=== PATIENT | female | born 1965 | race African-American/Black ===

== ENCOUNTER 2017-03-25 10:47 | Inpatient (IN) | payer BC, OTHER, SELFPAY ==
[~2017-03-25] VITALS: Ht 162.6 cm; Wt 67.3 kg
[2017-03-25] MEDS ORDERED: ONDANSETRON HCL 4 MG TABLET PO PRN ×2 (11:45)
[2017-03-25] MEDS ORDERED: LOPERAMIDE HCL 2 MG CAPSULE PO PRN (11:45)
[2017-03-25 11:54] VITALS: BP 109/70
[2017-03-25] MEDS ORDERED: ARIP2 PO (13:38)
[2017-03-25] MEDS ORDERED: CETI-260 PO (13:38)
[2017-03-25] MEDS ORDERED: FLUO-191 PO (13:38)
[2017-03-25] MEDS ORDERED: CLON1 PO (13:38)
[2017-03-25] MEDS ORDERED: CLON.1 PO (13:38)
[2017-03-25] MEDS ORDERED: FAMO20 PO (13:38)
[2017-03-25] MEDS ORDERED: ESTRADIOL TD SCH (15:00)
[2017-03-25 16:33] VITALS: BP 113/72
[2017-03-25] MEDS: SIMETHICONE 80 MG CHEWABLE TABLET CHEW SCH (16:37)
[2017-03-25 17:22] VITALS: BP 115/75
[2017-03-25] MEDS: LORazepam 2 MG TABLET PO PRN (17:23)
[2017-03-25] MEDS: OxyCODONE HCL/ACETAMINOPHEN 5-325 MG TABLET PO PRN (17:23)
[2017-03-25 18:23] VITALS: BP 112/70
[2017-03-25] MEDS: ClonazePAM 1 MG TABLET PO SCH (20:11)
[2017-03-25] MEDS: FAMOTIDINE 20 MG TABLET PO SCH ×2 (20:12→22:02)
[2017-03-26 05:53] VITALS: BP 119/72
[2017-03-26 06:42] VITALS: BP 118/76
[2017-03-26] MEDS: OxyCODONE HCL/ACETAMINOPHEN 5-325 MG TABLET PO PRN ×2 (06:46→16:14)
[2017-03-26] MEDS: LORazepam 2 MG TABLET PO PRN ×3 (06:46→20:16)
[2017-03-26 08:26] VITALS: BP 104/68
[2017-03-26] MEDS: SIMETHICONE 80 MG CHEWABLE TABLET CHEW SCH ×2 (08:34→16:05)
[2017-03-26] MEDS: ARIPiprazole 2 MG TABLET PO SCH (08:36)
[2017-03-26] MEDS: FAMOTIDINE 20 MG TABLET PO SCH ×2 (08:36→16:05)
[2017-03-26] MEDS: FLUoxetine HCL 20 MG CAPSULE PO SCH (08:36)
[2017-03-26] MEDS: ClonazePAM 1 MG TABLET PO SCH ×2 (08:37→17:48)
[2017-03-26] MEDS: CloNIDine HCL 0.1 MG TABLET PO SCH (08:37)
[2017-03-26] MEDS: CETIRIZINE HCL 10 MG TABLET PO SCH (08:37)
[2017-03-26 08:48] LABS: BASOPHILS % (AUTO) 0.5 % (0.0-2.0); EOSINOPHILS % (AUTO) 5.2 % (1.0-6.0); HEMATOCRIT 40.3 % (36-46); HEMOGLOBIN 12.8 g/dL (12.0-16.0); LYMPHOCYTES # (AUTO) 2.2 K/uL (1.0-4.8); LYMPHOCYTES % (AUTO) 36.8 % (22.0-44.0); MEAN CORPUSCULAR HEMOGLOBIN 29.2 pg (26.0-34.0); MEAN CORPUSCULAR HGB CONC 31.9 G/dL (31.0-37.0); MEAN CORPUSCULAR VOLUME 92 fL (80-100); MONOCYTES # (AUTO) 0.3 K/uL (0.1-1.0); NEUTROPHILS # (AUTO) 3.2 K/uL (1.8-7.7); NEUTROPHILS % (AUTO) 52.5 % (40.0-70.0); PLATELET COUNT (AUTO) 232 K/uL (150-450); RED BLOOD CELL COUNT(AUTO) 4.39 MIL/uL (4.00-5.20); RED CELL DISTRIBUTION WIDTH 14.5 % (11.5-14.5); WHITE BLOOD COUNT (AUTO) 6.1 K/uL (4.5-11.0)
[2017-03-26 09:58] LABS: ALANINE AMINOTRANSFERASE 25 U/L (12-78); ALBUMIN 3.5 g/dL (3.4-5.0); ANION GAP 9 mmol/L (8-16); ASPARTATE AMINOTRANSFERASE 20 U/L (15-37); BILIRUBIN,TOTAL 0.3 mg/dL (0.1-1.0); CALCIUM, TOTAL 9.3 mg/dL (8.8-10.5); CARBON DIOXIDE 30 mmol/L (22-29); CHLORIDE 104 mmol/L (98-107); GLOMERULAR FILTR. RATE CALC > 60 mL/min (>60); POTASSIUM 3.8 mmol/L (3.5-5.1); SODIUM SERUM 143 mmol/L (136-145); TOTAL PROTEIN, SERUM 7.3 g/dL (6.4-8.2); UREA NITROGEN, BLOOD 11 mg/dL (7-18)
[2017-03-26] MEDS: ONDANSETRON HCL 4 MG TABLET PO PRN (11:06)
[2017-03-26] MEDS ORDERED: ACETAMINOPHEN 325 MG TABLET PO PRN ×2 (14:30→18:30)
[2017-03-26 16:14] VITALS: BP 110/69
[2017-03-26 16:34] VITALS: BP 110/69
[2017-03-27 05:45] VITALS: BP 146/88
[2017-03-27] MEDS: OxyCODONE HCL/ACETAMINOPHEN 5-325 MG TABLET PO PRN ×2 (06:25→17:21)
[2017-03-27] MEDS: LORazepam 2 MG TABLET PO PRN ×3 (06:25→20:43)
[2017-03-27] MEDS: ONDANSETRON HCL 4 MG TABLET PO PRN (06:26)
[2017-03-27 08:30] VITALS: BP 122/70
[2017-03-27 08:37] LABS: HEMOGLOBIN A1C 5.7 % (4.5-6.2)
[2017-03-27 08:47] LABS: ALANINE AMINOTRANSFERASE 27 U/L (12-78); ALBUMIN 3.9 g/dL (3.4-5.0); ANION GAP 7 mmol/L (8-16); ASPARTATE AMINOTRANSFERASE 22 U/L (15-37); BILIRUBIN,TOTAL 0.2 mg/dL (0.1-1.0); CARBON DIOXIDE 31 mmol/L (22-29); CHLORIDE 102 mmol/L (98-107); CHOL/HDL RATIO 4.1 (3.9-5.7); CREATININE 0.85 mg/dL (0.60-1.30); GLOMERULAR FILTR. RATE CALC > 60 mL/min (>60); POTASSIUM 4.4 mmol/L (3.5-5.1); SODIUM SERUM 140 mmol/L (136-145); THYROID STIMULATING HORMONE 0.86 uIU/mL (0.36-3.74); TOTAL PROTEIN, SERUM 7.5 g/dL (6.4-8.2); UREA NITROGEN, BLOOD 10 mg/dL (7-18)
[2017-03-27] MEDS: CloNIDine HCL 0.1 MG TABLET PO SCH (09:00)
[2017-03-27] MEDS: FAMOTIDINE 20 MG TABLET PO SCH ×2 (09:29→17:19)
[2017-03-27] MEDS: SIMETHICONE 80 MG CHEWABLE TABLET CHEW SCH ×2 (09:30→17:19)
[2017-03-27] MEDS: FLUoxetine HCL 20 MG CAPSULE PO SCH (09:31)
[2017-03-27] MEDS: ARIPiprazole 2 MG TABLET PO SCH (09:31)
[2017-03-27] MEDS: ClonazePAM 1 MG TABLET PO SCH ×2 (09:31→17:19)
[2017-03-27] MEDS: CETIRIZINE HCL 10 MG TABLET PO SCH (09:31)
[2017-03-27 16:04] VITALS: BP 128/77
[2017-03-27] MEDS: ONDANSETRON HCL 4 MG/2 ML VIAL IM PRN (17:27)
[2017-03-27] MEDS: ZOLPIDEM TARTRATE 10 MG TABLET PO PRN (20:43)
[2017-03-27] MEDS: OXYBUTYNIN CHLORIDE 5 MG TABLET PO SCH (20:46)
[2017-03-28 04:15] VITALS: BP 118/90
[2017-03-28] MEDS: LORazepam 2 MG TABLET PO PRN ×3 (04:20→17:18)
[2017-03-28] MEDS: ONDANSETRON HCL 4 MG TABLET PO PRN ×2 (04:21→17:18)
[2017-03-28] MEDS: OxyCODONE HCL/ACETAMINOPHEN 5-325 MG TABLET PO PRN ×2 (05:45→21:29)
[2017-03-28 08:07] VITALS: BP 119/71
[2017-03-28] MEDS: CloNIDine HCL 0.1 MG TABLET PO SCH (08:47)
[2017-03-28] MEDS: FLUoxetine HCL 20 MG CAPSULE PO SCH (08:47)
[2017-03-28] MEDS: ARIPiprazole 2 MG TABLET PO SCH (08:48)
[2017-03-28] MEDS: CETIRIZINE HCL 10 MG TABLET PO SCH (08:48)
[2017-03-28] MEDS: SIMETHICONE 80 MG CHEWABLE TABLET CHEW SCH ×2 (08:48→17:18)
[2017-03-28] MEDS: FAMOTIDINE 20 MG TABLET PO SCH ×2 (08:48→17:18)
[2017-03-28] MEDS: ClonazePAM 1 MG TABLET PO SCH ×2 (08:48→17:19)
[2017-03-28 16:00] VITALS: BP 108/68
[2017-03-28] MEDS: OXYBUTYNIN CHLORIDE 5 MG TABLET PO SCH (21:30)
[2017-03-28] MEDS: ZOLPIDEM TARTRATE 10 MG TABLET PO PRN (21:30)
[2017-03-28] MEDS: ONDANSETRON HCL 4 MG/2 ML VIAL IM PRN (22:18)
[2017-03-29 00:20] VITALS: BP 108/77
[2017-03-29] MEDS: LORazepam 2 MG TABLET PO PRN ×4 (00:26→21:13)
[2017-03-29] MEDS: FAMOTIDINE 20 MG TABLET PO SCH ×2 (08:33→17:17)
[2017-03-29] MEDS: NICOTINE 7 MG/24 HOUR PATCH TD SCH (08:33)
[2017-03-29 08:34] VITALS: BP 110/75
[2017-03-29] MEDS: SIMETHICONE 80 MG CHEWABLE TABLET CHEW SCH ×2 (08:34→17:16)
[2017-03-29] MEDS: CETIRIZINE HCL 10 MG TABLET PO SCH (08:34)
[2017-03-29] MEDS: ARIPiprazole 2 MG TABLET PO SCH (08:34)
[2017-03-29] MEDS: FLUoxetine HCL 20 MG CAPSULE PO SCH (08:34)
[2017-03-29] MEDS: CloNIDine HCL 0.1 MG TABLET PO SCH (08:34)
[2017-03-29] MEDS: ClonazePAM 1 MG TABLET PO SCH ×2 (08:34→17:16)
[2017-03-29 08:35] VITALS: BP 116/69
[2017-03-29] MEDS: OxyCODONE HCL/ACETAMINOPHEN 5-325 MG TABLET PO PRN ×2 (08:35→17:47)
[2017-03-29] MEDS: ONDANSETRON HCL 4 MG TABLET PO PRN (08:41)
[2017-03-29 09:35] VITALS: BP 115/70
[2017-03-29 16:16] VITALS: BP 110/69
[2017-03-29 17:40] VITALS: BP 115/72
[2017-03-29] MEDS: PHENAZOPYRIDINE HCL 100 MG TABLET PO PRN (17:56)
[2017-03-29] MEDS: OXYBUTYNIN CHLORIDE 5 MG TABLET PO SCH (20:07)
[2017-03-29] MEDS: ZOLPIDEM TARTRATE 10 MG TABLET PO PRN (20:08)
[2017-03-30 00:35] VITALS: BP 114/67
[2017-03-30 02:45] VITALS: BP 113/72
[2017-03-30] MEDS: LORazepam 2 MG TABLET PO PRN ×3 (03:03→17:20)
[2017-03-30] MEDS: OxyCODONE HCL/ACETAMINOPHEN 5-325 MG TABLET PO PRN ×2 (03:03→16:06)
[2017-03-30] MEDS: CETIRIZINE HCL 10 MG TABLET PO SCH (08:10)
[2017-03-30] MEDS: SIMETHICONE 80 MG CHEWABLE TABLET CHEW SCH ×2 (08:10→16:06)
[2017-03-30] MEDS: NICOTINE 7 MG/24 HOUR PATCH TD SCH (08:10)
[2017-03-30] MEDS: CloNIDine HCL 0.1 MG TABLET PO SCH (08:10)
[2017-03-30] MEDS: FLUoxetine HCL 20 MG CAPSULE PO SCH (08:10)
[2017-03-30] MEDS: FAMOTIDINE 20 MG TABLET PO SCH ×2 (08:10→16:06)
[2017-03-30] MEDS: ClonazePAM 1 MG TABLET PO SCH ×2 (08:10→16:06)
[2017-03-30] MEDS: ARIPiprazole 2 MG TABLET PO SCH (08:11)
[2017-03-30 08:18] VITALS: BP 121/64
[2017-03-30] MEDS: ONDANSETRON HCL 4 MG TABLET PO PRN ×2 (12:25→20:29)
[2017-03-30 16:09] VITALS: BP 117/69
[2017-03-30] MEDS: ZOLPIDEM TARTRATE 10 MG TABLET PO PRN (20:29)
[2017-03-30] MEDS: OXYBUTYNIN CHLORIDE 5 MG TABLET PO SCH (20:29)
[2017-03-31 02:29] VITALS: BP 114/73
[2017-03-31] MEDS: LORazepam 2 MG TABLET PO PRN ×2 (02:32→10:38)
[2017-03-31] MEDS: OxyCODONE HCL/ACETAMINOPHEN 5-325 MG TABLET PO PRN (02:33)
[2017-03-31 08:07] VITALS: BP 123/67
[2017-03-31] MEDS: FLUoxetine HCL 20 MG CAPSULE PO SCH (08:38)
[2017-03-31] MEDS: CloNIDine HCL 0.1 MG TABLET PO SCH (08:38)
[2017-03-31] MEDS: FAMOTIDINE 20 MG TABLET PO SCH (08:38)
[2017-03-31] MEDS: NICOTINE 7 MG/24 HOUR PATCH TD SCH (08:38)
[2017-03-31] MEDS: SIMETHICONE 80 MG CHEWABLE TABLET CHEW SCH (08:38)
[2017-03-31] MEDS: ARIPiprazole 2 MG TABLET PO SCH (08:38)
[2017-03-31] MEDS: CETIRIZINE HCL 10 MG TABLET PO SCH (08:38)
[2017-03-31] MEDS: ClonazePAM 1 MG TABLET PO SCH (08:38)
[2017-03-31] MEDS: PHENAZOPYRIDINE HCL 100 MG TABLET PO PRN (08:46)
[2017-03-31] MEDS ORDERED: SIME40DR2 PO (09:48)
[2017-03-31] MEDS ORDERED: OXYB5 PO (09:48)
[2017-04-01] MEDS ORDERED: ESTRADIOL TD SCH (09:00)
== END 2017-03-31 13:25 | disposition home or self-care (01) | DRG 885 ==
LOC: B2X 11:33 → EDSTATUS 11:44 → B2S 14:24
PROC: GZHZZZZ Group Psychotherapy (ICD-10-PCS; principal; 2017-03-26)
DX: F33.2 Major depressive disorder, recurrent severe without psychotic features (principal); R45.851 Suicidal ideations; M79.7 Fibromyalgia; K57.90 Diverticulosis of intestine, part unspecified, without perforation or abscess without bleeding; M19.90 Unspecified osteoarthritis, unspecified site; I10 Essential (primary) hypertension; F41.9 Anxiety disorder, unspecified; K27.9 Peptic ulcer, site unspecified, unspecified as acute or chronic, without hemorrhage or perforation; Z83.3 Family history of diabetes mellitus; Z82.49 Family history of ischemic heart disease and other diseases of the circulatory system; Z80.0 Family history of malignant neoplasm of digestive organs; Z88.2 Allergy status to sulfonamides; Z88.8 Allergy status to other drugs, medicaments and biological substances; Z88.0 Allergy status to penicillin; Z79.899 Other long term (current) drug therapy; Z87.19 Personal history of other diseases of the digestive system; Z88.6 Allergy status to analgesic agent
CPT/HCPCS: 83036; 84443; J2405; Q0162